=== PATIENT | female | born 1995 | race Caucasian/White ===

== ENCOUNTER 2018-01-16 11:16 | Emergency (ER) | payer OTHER ==
[2018-01-16 11:46] LABS: BILIRUBIN,URINE NEGATIVE (NEGATIVE); CLARITY,URINE CLEAR (CLEAR); GLUCOSE, URINE (UA) NEGATIVE (NEGATIVE); HCG UR QUAL NEGATIVE; KETONES,URINE (UA) NEGATIVE (NEGATIVE); LEUKOCYTE ESTERASE, URINE TRACE (NEGATIVE); NITRITE,URINE NEGATIVE (NEGATIVE); OCCULT BLOOD,URINE NEGATIVE (NEGATIVE); PROTEIN,URINE NEGATIVE (NEGATIVE); UROBILINOGEN,URINE 0.2 (NORMAL) E.U./dL (NORMAL)
[2018-01-16 11:56] LABS: BACTERIA,URINE Rare /HPF (None Seen); RBC,URINE 0-5 /HPF (0-5); SQUAMOUS EPITHELIAL CELL,UR FEW Squamous (<= Few)
[2018-01-16] MEDS ORDERED: AZITHROMYCIN 250 MG TABLET PO STA (14:08)
--- NOTE | 2018-01-16 14:10 | ED Physician Documentation ---
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 He was tested and treated today and she would like to be tested and treated as well. She had urinary frequency yesterday that was fleeting and not present today. She has no vaginal discharge, no flank pain or fevers.) Review of Systems Constitutional: denies: Fever, Chills GI: denies: Abdominal Pain, Nausea, Vomiting : reports: Frequency (gone). denies: Dysuria PD PAST MEDICAL HISTORY - Past Medical History Past Medical History: No - Past Surgical History Past Surgical History: No - Present Medications Home Medications: Ambulatory Orders Medication Instructions Recorded Confirmed No Known Home Medications 01/16/18 01/16/18 - Allergies Allergies/Adverse Reactions: Allergies Allergy/AdvReac Type Severity Reaction Status Date / Time No Known Drug Allergies Allergy Verified 01/16/18 11:26 - Social History Does the pt smoke?: No Smoking Status: Never smoker Does the pt drink ETOH?: Yes - Immunizations Immunizations: TDAP >10years/unknown PD ED PE NORMAL - Vitals Vital signs reviewed: Yes - General General: Alert and oriented X 3, No acute distress - Abdomen Abdomen: Normal bowel sounds, Soft, Non tender - Neuro Neuro: Alert and oriented X 3, Normal speech Results - Vitals Vitals: Vital Signs - 24 hr 01/16/18 11:21 Temperature 36.6 C Heart Rate 79 Respiratory 18 Rate Blood Pressure 139/78 H O2 Saturation 98 Oxygen O2 Source Room air - Labs Labs: Laboratory Tests 01/16/18 11:29 Urine Color LT. YELLOW Urine Clarity CLEAR Urine pH 7.0 Ur Specific [place] <=1.005 Urine Protein NEGATIVE Urine Glucose (UA) NEGATIVE Urine Ketones NEGATIVE Urine Occult Blood NEGATIVE Urine Nitrite NEGATIVE Urine Bilirubin NEGATIVE Urine Urobilinogen 0.2 (NORMAL) Ur Leukocyte Esterase TRACE H Urine RBC 0-5 Urine WBC 0-3 Ur Squamous Epith Cells FEW Squamous Urine Bacteria Rare Ur Microscopic Review INDICATED Urine Culture Comments INDICATED Urine HCG, Qual NEGATIVE Departure - Departure Disposition: 01 Home, Self Care Clinical Impression: Concern about STD in female without diagnosis Condition: Good Record reviewed to determine appropriate education?: Yes Instructions: ED VD Cervicitis Treated Comments: We will call if your urine culture or chlamydia testing is positive. Return for new or worsening symptoms. Your blood pressure was elevated today on check into the emergency department. This does not mean that you have hypertension, it is a common phenomenon to come to the emergency department and have elevated blood pressure. I recommend that you see your primary care physician within the week to have it rechecked when you are feeling better.
[2018-01-16 14:18] VITALS: BP 126/67
== END 2018-01-16 14:20 | disposition home or self-care (01) ==
LOC: ED 11:16
DX: Z20.2 Contact with and (suspected) exposure to infections with a predominantly sexual mode of transmission (principal); Z11.3 Encounter for screening for infections with a predominantly sexual mode of transmission; R03.0 Elevated blood-pressure reading, without diagnosis of hypertension
CPT/HCPCS: 81001; 81025; 87086; 87491; 87591; 99282; 99283; A9270; 81003

== ENCOUNTER 2018-04-20 06:13 | Day surgery (SDC) | payer OTHER ==
[2018-04-20] MEDS ORDERED: ceFAZolin 2 GM/50 ML 2 GM/50 ML BAG IV ONE (06:25)
[2018-04-20 06:49] LABS: HCG UR QUAL NEGATIVE
[2018-04-20] MEDS ORDERED: LACTATED RINGERS 1,000 ML IV ONE ×2 (06:51→08:21)
--- NOTE | 2018-04-20 07:12 | ANESTHESIA ---
Pre-Anesthesia VS, & Labs - Diagnosis Follicular cysts of chin skin at subcutaneous tissue - Procedure excision of lesion of mucosa and submucosa vestibule of mouth Vital Signs: Temp Pulse Resp BP Pulse Ox 36.8 C 92 16 120/67 98 04/20/18 06:38 04/20/18 06:38 04/20/18 06:38 04/20/18 06:38 04/20/18 06:38 Height 5 ft 4 in Weight (kg) 75.4 kg Body Mass Index 27.4 - NPO >8 hours - Is Patient ?: No Home Medications and Allergies Home Medications: Ambulatory Orders Norethindrone-E.estradiol-Iron [Blisovi 24 Fe Tablet] 1 each PO DAILY 04/13/18 Norethindrone-E.estradiol-Iron [Blisovi 24 Fe Tablet] 1 each PO DAILY 04/13/18 Allergies/Adverse Reactions: Allergies Allergy/AdvReac Type Severity Reaction Status Date / Time No Known Drug Allergies Allergy Verified 01/16/18 11:26 Anes History & Medical History - Anesthetic History Anesthesia Complications: reports: Post-Operative Nausea/Vomiting - Medical History Cardiovascular: reports: None Pulmonary: reports: None Gastrointestinal: reports: None Urinary: reports: None Neuro: reports: None Musculoskeletal: reports: None Endocrine/Autoimmune: reports: None Blood Disorders: reports: None Skin: reports: None Smoking Status: Never smoker Psychosocial: reports: No issues indicated - Surgical History Eyes Ears Nose Throat (EENT): Other (tongue biopsy) Exam General: Alert, Oriented x3, Cooperative, No acute distress Dental: WNL Mouth Openin Fingerbreadth Neck Mobility: Normal Mallampati classification: I Thyromental Distance: 4-6 cm Respiratory: Lungs clear, Normal breath sounds, No respiratory distress, No accessory muscle use Cardiovascular: Regular rate, Normal S1, Normal S2, No murmurs Mental/Cognitive Status: Alert/Oriented X3, Normal for patient Plan Anesthesia Type: General Consent for Procedure(s) Verified and Reviewed: Yes Code Status: Attempt Resuscitation ASA classification: 1-Healthy patient Is this case an emergency?: No
[2018-04-20] MEDS ORDERED: LIDOCAINE MPF 2%-EPI 1:200000 20 ML VIAL ONE (07:16)
[2018-04-20] MEDS ORDERED: CHLORHEXIDINE GLUCONATE 15 ML UDC PO ONE (07:19)
[2018-04-20] MEDS ORDERED: SCOPOLAMINE PATCH TOP ONE (07:24)
[2018-04-20] MEDS ORDERED: LIDOCAINE MPF 2%-EPI 1:200000 20 ML VIAL SUBQ ONE (08:04)
[2018-04-20] MEDS ORDERED: BACITRACIN ZINC OINT 15 GM TOP ONE (09:33)
[2018-04-20] MEDS ORDERED: BACITRACIN OINT TOP ONE (09:36)
[2018-04-20] MEDS ORDERED: PROPOFOL 200 MG/20 ML VIAL IVP ONE (09:55)
[2018-04-20] MEDS ORDERED: GLYCOPYRROLATE 1 MG/5 ML VIAL IVP ONE (09:55)
[2018-04-20] MEDS ORDERED: DEXAMETHASONE 4 MG/ML VIAL IVP ONE (09:55)
[2018-04-20] MEDS ORDERED: ONDANSETRON 4 MG/2 ML VIAL IVP ONE (09:55)
[2018-04-20] MEDS ORDERED: KETOROLAC 30 MG/ML VIAL IVP ONE (09:55)
[2018-04-20] MEDS ORDERED: ROCURONIUM 50 MG/5 ML VIAL IVP ONE (09:55)
[2018-04-20] MEDS ORDERED: MIDAZOLAM 2 MG/2 ML VIAL IVP ONE (09:55)
[2018-04-20] MEDS ORDERED: NEOSTIGMINE 1 MG/1 ML 10 ML MDV IVP ONE (09:55)
[2018-04-20] MEDS ORDERED: fentaNYL 100 MCG/2 ML VIAL IVP ONE (09:55)
[2018-04-20] MEDS ORDERED: ONDANSETRON 4 MG/2 ML VIAL IVP PRN (10:00)
[2018-04-20] MEDS ORDERED: HYDROmorphone 0.5 MG/0.5 ML SYRINGE IVP PRN (10:00)
[2018-04-20] MEDS ORDERED: HYDROcod/ACETAM 5/325 MG TABLET PO PRN (10:00)
[2018-04-20] MEDS: HYDROmorphone 1 MG/ML CARPUJECT ONE ×2 (10:06→10:12)
[2018-04-20 10:36] VITALS: BP 123/79
[2018-04-20] MEDS ORDERED: ONDANSETRON 4 MG/2 ML VIAL ONE (10:53)
[2018-04-20] MEDS ORDERED: OXYMETAZOLINE NASAL SPRAY NAS ONE (16:13)
--- NOTE | 2018-04-21 06:48 | OPERATIVE REPORT ---
DATE OF SERVICE: 04/20/2018 Physician: Steve Mcfadden DDS PROCEDURES PERFORMED 1. Removal of mass from the right premental soft tissue. 2. Biopsy of mass of the right premental soft tissue. PREOPERATIVE DIAGNOSIS: Right premental soft tissue mass. POSTOPERATIVE DIAGNOSIS: Right premental soft tissue mass. PRIMARY SURGEON: Steve Mcfadden DDS. LOCATION OF PROCEDURE: [facility] operating room. ANESTHESIA TYPE: General anesthesia via nasal endotracheal intubation. ANESTHESIA PROVIDER: Nandini Morrow CRNA. SPECIMENS 1. Right premental muscle. 2. Right premental lipoma. DRAINS, PACKS, CATHETERS: None. COMPLICATIONS: None. ESTIMATED BLOOD LOSS: 50 mL. INDICATIONS FOR PROCEDURE: Patient is a 23-year-old female who presented to clinic with complaint of right premental soft tissue swelling and pain. She had previously seen a overhauler who diagnosed her to have a cyst, but recommended seeking consultation in our office to avoid a scar. She wanted to seek removal of the cyst without leaving a scar and so she sought treatments in our clinic. In our clinic, we agreed to perform removal of the cyst via an intraoral approach to try and avoid scar formation. The risks, benefits and alternatives of this plan were discussed with the patient including pain, swelling, bleeding, infection, poor cosmesis, facial asymmetry, a hollowed out appearance of the area where the lesion is, recurrence of the lesion and inadequate specimen. Adequate time was given to answer all questions and informed consent was obtained. One important thing to note is that during the preoperative examination, it was noted that there were several masses on the dorsal tongue with appearance of a dilated blood vessel. She was questioned about these masses and she reported that they had been biopsied one time previously and the biopsy result was benign. Although she could not remember the exact diagnosis, it was something to the effect of a dilated blood vessel. DESCRIPTION OF PROCEDURE: The patient was brought to the main operating room and placed in the supine position on the operating table. General anesthesia was induced by the anesthesia team and the airway was secured with a nasal NATI tube. Tube was secured to the face in the usual fashion and the eyes were taped. The patient was prepped and draped in the standard sterile fashion for an intraoral surgical procedure after all pressure points were padded and checked. A throat pack was placed. Local anesthesia was achieved with 5 mL of 2% lidocaine with 1:100,000 epinephrine. Attention was directed to the right mandibular anterior vestibule. An incision was made from canine to canine to mucosa and then electrocautery was used to dissect sharply down to the periosteum. The periosteum was only incised from the midline over to the canine and then I dissected subperiosteally in order to identify the mental foramen. The mental foramen was identified and the mental nerve was protected. Now with a good bearing on the location of the mental nerve, dissection ensued through a supraperiosteal plane through bisecting the mentalis muscle and the midline connective tissue attachment in the direction of the swelling of the right premental soft tissue. A finger was constantly used extraorally to assure that the direction of the dissection was in the direction of the most swelling. At no time during the surgery could any specific fluid mass or cyst-like formation be easily palpated. It was mostly just noted that the right premental soft tissue was remarkably larger than the left, and that this tissue was painful for the patient. Upon dissection into the right premental skin, we found only a mass of fat. The fat was not encapsulated. It appeared to be well associated with the other tissues, but it did appear to be more prominent than the amount of premental fat that was able to be observed without extensive dissection into the left premental soft tissue. An extensive attempt was made to dissect throughout the entire right premental soft tissue and find a cyst, but none could be found. At no point was there any appreciation of clear or straw-colored fluid, which would be consistent with cyst rupture noted. At no point in the procedure was any cyst visualized or palpated. It became evident now that the patient probably had another etiology of her swelling, which had become a painful swelling, and that the etiology was not clear. This, combined with the fact that she had the masses on her tongue, became slightly more concerning, and so it was decided to take the procedure not only in the direction of achieving a more cosmetic contour of the right premental soft tissue, but also in the direction of finding a diagnosis for the cause of this patient's swelling. The fat and the muscle were both biopsied, as whatever the source of the swelling was, it appeared that the mass was probably of a mesenchymal origin. It should also be noted that no dilated blood vessels were noted during the dissection and bleeding was easy to control and there were no similar lesions to those of the dorsal tongue. After specimens were taken and submitted to pathology, further defatting of the area was performed, taking care to be conservative as we came close to the surface skin, to avoid pitting appearance of the skin. Good hemostasis was achieved. The site was irrigated. The wound was closed in layers with the muscles being reapproximated with 4-0 Vicryl suture and then the mucosa being reapproximated with 4-0 chromic gut suture. The patient's mouth was rinsed free of debris and the oropharynx was suctioned. The throat pack was removed. The face was washed. A pressure dressing was placed on the chin using Mastisol, gauze and foam tape. The patient was returned to the anesthesia team for uneventful extubation and emergence from anesthesia. The patient was transferred to the PACU in stable condition. TD: 04/20/2018 22:14 MTDD
== END 2018-04-20 06:14 | disposition home or self-care (01) ==
LOC: SDS 06:13
PROVIDERS: ATTEND Dentist Oral and Maxillofacial Surgery
PROC: 0WB30ZX Excision of Oral Cavity and Throat, Open Approach, Diagnostic (ICD-10-PCS; principal; 2018-04-20 07:30)
DX: D17.9 Benign lipomatous neoplasm, unspecified (principal); L72.8 Other follicular cysts of the skin and subcutaneous tissue
CPT/HCPCS: 40816; 81025; A9270; J0690; J1170; J3490; J7120

== ENCOUNTER 2018-06-07 08:42 | Outpatient (CLI) | payer OTHER ==
[2018-06-07] MEDS ORDERED: GADOBUTROL 7.5 MMOL/7.5 ML VIAL ONE (08:50)
[2018-06-07] MEDS ORDERED: GADOBUTROL 7.5 MMOL/7.5 ML VIAL IVP ONE ×2 (10:23)
--- NOTE | 2018-06-07 16:05 | MRI Report ---
Reason: ENCOUNTER FOR SCREENING MAMMOGRAM FOR MALIGNANT NE Procedure Date: 06/07/2018 Accession Number: [id number] / [id number] Procedure: MRI - Neck Soft Tissue W/WO CPT Code: FULL RESULT: EXAM: MRI SOFT TISSUE NECK WITHOUT AND WITH CONTRAST EXAM DATE: 06/07/2018 09:50 AM. CLINICAL HISTORY: Lump on the chin. Patient also states multiple masses on the tongue. Additional history from referring treating physician includes resection of subcutaneous cyst from the chin to the right of midline about 1 month ago. COMPARISON: None. TECHNIQUE: Multiplanar, multisequence T1-weighted and fluid-sensitive MR sequences of the neck soft tissues were performed. Other: None. IV Contrast: 7 cc Gadavist. FINDINGS: Skull Base: Visualized intracranial contents and orbits are unremarkable. The skull base is intact. The visualized sinuses are clear. Pharynx and Oral Cavity: Abnormal increased T2 signal with enhancement is seen in the right aspect of the tongue. Involvement of the sublingual space is seen. Involvement of the lateral and anterior free margin of the right tongue as well as the base of the tongue in the midline is seen. Extension posteriorly into the right finish patcher space is seen. This is deep to and posterior to the angle and ramus of the mandible. This surrounds the pterygoid muscles. This is along the deep surface of the parotid gland adjacent to the mandible. Additionally, thin linear vascular structure is seen in the midline beneath the mandible. This extends into the subcutaneous soft tissues anterior to the chin centered to the right of midline. Extension into the submandibular space is seen at the level of the submandibular gland especially within the hilum. Lobular extension is seen into right lateral oral pharynx posterior to the palatine tonsils and deep to the pharyngeal mucosa. The hypopharynx is unremarkable. The infratemporal fossa, parapharyngeal spaces, and pterygopalatine fossa are symmetric and unremarkable. The airway is patent. Larynx: The larynx and supraglottic airway are patent without mass lesion. The vocal cords are symmetric. The visualized trachea is unremarkable. Parotid and Submandibular Glands: Curvilinear signal abnormality is seen in the hilum of the right submandibular gland. No intrinsic parenchymal signal abnormality is seen. Similar curvilinear signal abnormality is seen along the deep and anterior margin of the right parotid gland adjacent to the mandible. No definite intrinsic signal abnormality is appreciated. The left submandibular gland and left parotid gland are unremarkable. Lymph Nodes and Soft Tissues: Mildly prominent lymphoid tissue is seen in the adenoids and palatine tonsils. Mildly prominent cervical lymphadenopathy is seen. This involves level I, level II, level III, and level V lymph nodes. No signal abnormality is appreciated. A marker is placed on the skin to the left of midline at the site of "lump." An oval 8 mm soft tissue nodule is seen in the subcutaneous fat plane at this location. This demonstrates isointense T1 with hyperintense T2 signal with enhancement.. Vasculature: Intact. Bones: An oval 15 mm focus of signal abnormality is seen in the C2 vertebrae. This involves the left aspect of the vertebral body to the base of the pedicle. Subtle hypointense T1 signal with hyperintense T2/STIR signal and enhancement is seen. Striated appearance is noted. No cortical disruption is evident. Other: The upper chest and thoracic inlet are unremarkable. The thyroid is unremarkable. IMPRESSION: 1. Signal abnormality centered in the right tongue and floor of the mouth. This demonstrates increased T2 signal and enhancement. 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 Multi fascial plane involvement is seen, including: - Posterior extension into the right finish patcher space is seen. This is deep to and posterior to the angle and ramus of the mandible. - Posteromedial extension is seen into the submucosal region of the right lateral oral pharynx posterior to the palatine tonsils. - Inferior extension into the submandibular space is seen, especially at the hilum of the right submandibular gland. - Anterior extension beneath the mandible into the subcutaneous fascial planes at the right chin is evident. 2. Mildly prominent cervical lymphadenopathy as noted above. This may represent nonspecific reactive inflammatory change. 3. 15 mm focus of signal abnormality in the left posterolateral C2 vertebral body. 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 If the patient has an oncologic history, metastatic lesion could not be excluded. This could be further evaluated with bone scan. 4. 8 mm subcutaneous nodule in the left chin, deep to the skin marker. This could represent trichilemmal cyst or an additional focus of vascular malformation/hemangioma. 5. Indistinct soft tissue stranding anterior to the right chin. By history, this is in surgical bed from previous cyst excision. This in part could be due to postoperative change as well as extension of oral cavity vascular malformation into this location. [facility] The call report notification system was initiated by Dr. Negro Calvillo at 02:38 PM on 06/07/2018. Critical Test: The above call report findings were discussed with Referring Treating Physician by Dr. Negro Calvillo at 02:48 PM on 06/07/2018.
== END 2018-06-07 08:43 | disposition home or self-care (01) ==
LOC: DI 08:42
PROVIDERS: ATTEND Dentist Oral and Maxillofacial Surgery
DX: R22.1 Localized swelling, mass and lump, neck (principal); R59.0 Localized enlarged lymph nodes
CPT/HCPCS: 70543; A9585